=== PATIENT | male | born 1980 | race Native Hawaiian/Other Pacific Islander ===

== ENCOUNTER 2016-07-27 06:44 | Emergency (ER) | payer OTHER ==
[~2016-07-27] VITALS: Ht 167.6 cm; Wt 80.0 kg
[2016-07-27 06:52] VITALS: TEMP 37.3; Ht 167.6 cm; Wt 80.0 kg
[2016-07-27] MEDS ORDERED: ONDANSETRON INJ 2 MG/ML 2 ML VIAL IV STA (06:55)
[2016-07-27] MEDS ORDERED: SODIUM CHLORIDE 0.9% 1000ML 1,000 ML IV STA (06:55)
--- NOTE | 2016-07-27 06:58 | EMERGENCY ROOM VISIT NOTE ---
History Report prepared by Janelle: Jacquelin Cross Under the Supervision of: Dr. Zelalem Bonilla M.D. First contact with patient: 06:46 Chief Complaint: VOMITING Stated Complaint: VOMITING/DIARRHEA History of Present Illness The patient is a 36 year old male who presents to the Emergency Room with complaints of persistent nausea, vomiting, and diarrhea starting yesterday morning. He had 5 episodes of diarrhea and 4 episodes of vomiting. He reports a loss of appetite and a reduced fluid intake. He also complains of fatigue and diaphoresis. The patient denies any abdominal pain, or any other complaints. He denies any history of abdominal surgeries. He also denies any recent ill contacts or questionable food sources. Source of History: patient Onset: yesterday morning Position: other (global) Quality: other (nausea, vomiting, and diarrhea) Timing: other (persistent) Associated Symptoms: + diaphoresis, + fatigue, No abdominal pain Review of Systems See HPI for pertinent positives & negatives. A total of 10 systems reviewed and were otherwise negative. Past Medical & Surgical Medical Problems: (1) Asthma (2) Nausea vomiting and diarrhea Family History Heart disease Kidney disease Kidney stones Social History Marital Status: single Housing Status: lives with roommate Occupation Status: [employer] student Current/Historical Medications Scheduled Ondasetron Odt (Zofran Odt), 4 MG SL Q6H Allergies Coded Allergies: No Known Allergies (Unverified , 07/27/16) Physical Exam Vital Signs Date Time Temp Pulse Resp B/P Pulse Ox O2 Delivery O2 Flow Rate FiO2 07/27/16 08:38 103 07/27/16 08:17 98 18 112/74 96 Room Air 07/27/16 06:52 37.3 97 18 128/78 100 Room Air Physical Exam GENERAL: Patient is a healthy-appearing well-nourished HEAD: Normocephalic atraumatic EYES: Ocular movements intact pupils equal and react to light OROPHARYNX mucous membranes are moist no exudates present no erythema or edema present NECK: Supple no nuchal rigidity CHEST: Good equal expansion LUNGS: Clear and equal to auscultation CARDIAC: Normal S1 and S2 ABDOMEN: Soft nontender no guarding BACK: No CVA tenderness EXTREMITIES: No pain upon palpation normal muscle strength in all groups no clubbing cyanosis or edema NEURO: Patient is following commands is answering questions appropriately. Alert and oriented x3 Cranial Nerves 2-12 grossly intact Medical Decision & Procedures ER Provider Diagnostic Interpretation: X-ray results as stated below per interpretation by me and the radiologist: PA CHEST RADIOGRAPH AND UPRIGHT AND SUPINE AP RADIOGRAPHS OF THE ABDOMEN CLINICAL HISTORY: Nausea, vomiting and diarrhea. COMPARISON STUDY: No previous studies for comparison. FINDINGS: Lung volumes are normal. No consolidation is identified. There is no evidence of pulmonary edema. There is possible mild cardiomegaly. No free air is present. Bowel gas pattern is normal. Pelvic calcifications likely reflect phleboliths. IMPRESSION: 1. No free air or evidence of bowel obstruction. 2. No acute cardiopulmonary findings. 3. Possible mild cardiomegaly. Electronically signed by: Tyrone Zimmerman M.D. 07/27/2016 7:40 AM Dictated Date/Time: 07/27/2016 7:38 AM Laboratory Results 07/27/16 07:00 Red Blood Count 5.88, Mean Corpuscular Volume 75.7, Mean Corpuscular Hemoglobin 25.9, Mean Corpuscular Hemoglobin Concent 34.2, Mean Platelet Volume 10.5, Neutrophils (%) (Auto) 88.0, Lymphocytes (%) (Auto) 6.5, Monocytes (%) (Auto) 4.2, Eosinophils (%) (Auto) 0.5, Basophils (%) (Auto) 0.1, Neutrophils # (Auto) 8.84, Lymphocytes # (Auto) 0.65, Monocytes # (Auto) 0.42, Eosinophils # (Auto) 0.05, Basophils # (Auto) 0.01 07/27/16 07:00 Test 07/27/16 06:57 07/27/16 07:00 Urine Color DK YELLOW Urine Appearance CLOUDY (CLEAR) Urine pH 7.5 (4.5-7.5) Urine Specific [place] 1.039 (1.000-1.030) Urine Protein NEG (NEG) Urine Glucose (UA) NEG (NEG) Urine Ketones 1+ (NEG) Urine Occult Blood NEG (NEG) Urine Nitrite NEG (NEG) Urine Bilirubin NEG (NEG) Urine Urobilinogen NEG (NEG) Urine Leukocyte Esterase TRACE (NEG) Urine WBC (Auto) 1-5 /hpf (0-5) Urine RBC (Auto) 0-4 /hpf (0-4) Urine Hyaline Casts (Auto) 5-10 /lpf (0-5) Urine Epithelial Cells (Auto) >30 /lpf (0-5) Urine Bacteria (Auto) 1+ (NEG) Urine Renal Epithelial Cells /lpf (0-5) Urine Mucus PRESENT (NONE PRSENT) White Blood Count 10.04 K/uL (4.8-10.8) Red Blood Count 5.88 M/uL (4.7-6.1) Hemoglobin 15.2 g/dL (14.0-18.0) Hematocrit 44.5 % (42-52) Mean Corpuscular Volume 75.7 fL (80-100) Mean Corpuscular Hemoglobin 25.9 pg (25-34) Mean Corpuscular Hemoglobin Concent 34.2 g/dl (32-36) Platelet Count 304 K/uL (130-400) Mean Platelet Volume 10.5 fL (7.4-10.4) Neutrophils (%) (Auto) 88.0 % Lymphocytes (%) (Auto) 6.5 % Monocytes (%) (Auto) 4.2 % Eosinophils (%) (Auto) 0.5 % Basophils (%) (Auto) 0.1 % Neutrophils # (Auto) 8.84 K/uL (1.4-6.5) Lymphocytes # (Auto) 0.65 K/uL (1.2-3.4) Monocytes # (Auto) 0.42 K/uL (0.11-0.59) Eosinophils # (Auto) 0.05 K/uL (0-0.5) Basophils # (Auto) 0.01 K/uL (0-0.2) RDW Standard Deviation 38.4 fL (36.4-46.3) RDW Coefficient of Variation 13.8 % (11.5-14.5) Immature Granulocyte % (Auto) 0.7 % Immature Granulocyte # (Auto) 0.07 K/uL (0.00-0.02) Anion Gap 11.0 mmol/L (3-11) Est Creatinine Clear Calc Drug Dose 83.8 ml/min Estimated GFR () 89.0 Estimated GFR (Non- 76.8 BUN/Creatinine Ratio 20.5 (10-20) Calcium Level 9.9 mg/dl (8.5-10.1) Total Bilirubin 0.5 mg/dl (0.2-1) Direct Bilirubin 0.1 mg/dl (0-0.2) Aspartate Amino Transf (AST/SGOT) 27 U/L (15-37) Alanine Aminotransferase (ALT/SGPT) 50 U/L (12-78) Alkaline Phosphatase 116 U/L (45-117) Total Protein 9.2 gm/dl (6.4-8.2) Albumin 4.2 gm/dl (3.4-5.0) Lipase 125 U/L (73-393) Labs reviewed by ED physician. Medications Administered Medications (Trade) Dose Ordered Sig/Fernando Route Start Time Stop Time Status Last Admin Dose Admin Sodium Chloride (Nss 1000ml) 1,000 ml @ 999 mls/hr Q1H1M STAT IV 07/27/16 06:55 07/27/16 07:55 DC 07/27/16 07:08 999 MLS/HR Ondansetron HCl (Zofran Inj) 4 mg NOW STAT IV 07/27/16 06:55 07/27/16 06:58 DC 07/27/16 07:08 4 MG Ketorolac Tromethamine (Toradol Inj) 30 mg NOW STAT IV 07/27/16 07:37 07/27/16 07:38 DC 07/27/16 08:18 30 MG ED Course 0646: Past medical records reviewed. The patient was evaluated in room B06. A complete history and physical examination was performed. 0655: Zofran Inj 4 mg IV, Sodium Chloride 1000 ml @ 999 mls/hr IV 0737: Toradol Inj 30 mg IV 0806: Upon reexamination the patient is resting comfortably. I discussed results and treatment plan with the patient. He verbalizes agreement and understanding. The patient is ready for discharge. Medical Decision Differential diagnosis: Etiologies such as gastroenteritis, food borne illness, infections, appendicitis , diverticulitis, inflammatory bowel disease, obstruction, GI bleed, biliary pathology, as well as others were entertained. This is a 36-year-old male who presents emergency department complaining of vomiting. Serial abdominal examinations were performed on the patient in the emergency department and at no time did the patient exhibited a surgical abdomen. The patient was given normal saline bolus in the emergency department as well as Zofran. Repeat examination revealed improvement patient's symptoms. I do believe the patient as well as he can be discharged home for follow-up with his primary care physician. I recommended that the patient take Zofran and small sips of fluid. Patient was in agreement with the treatment plan. Impression Primary Impression: Gastroenteritis Scribe Attestation The scribe's documentation has been prepared under my direction and personally reviewed by me in its entirety. I confirm that the note above accurately reflects all work, treatment, procedures, and medical decision making performed by me. Departure Information Dispostion Home / Self-Care Prescriptions Ondasetron Odt (ZOFRAN ODT) 4 Mg Tab 4 MG SL Q6H for Nausea, #6 TAB Prov: Zelalem Bonilla MD 07/27/16 Referrals [facility] (PCP) Forms HOME CARE DOCUMENTATION FORM, IMPORTANT VISIT INFORMATION Patient Instructions ED Diet Vomiting Diarrhea, ED Gastroenteritis Vs Food Poison, My [facility] Additional Instructions You have been examined and treated today on an emergency basis only. This is not a substitute for, or an effort to provide, complete comprehensive medical care. It is impossible to recognize and treat all injuries or illnesses in a single emergency department visit. It is therefore important that you follow up closely with [facility]. Call as soon as possible for an appointment. Thank you for your time and consideration. I look forward to speaking with you again soon. Please don't hesitate to call us if you have any questions.
[2016-07-27 07:21] LABS: BASO % 0.1 %; BASO ABS # 0.01 K/uL (0-0.2); COMPLETE YES; EOS % 0.5 %; HEMATOCRIT 44.5 % (42-52); IG% 0.7 %; LYMPH % 6.5 %; LYMPH ABS # 0.65 K/uL (1.2-3.4); MEAN CELL VOLUME 75.7 fL (80-100); MEAN CORPUSCULAR HEMOGLOBIN 25.9 pg (25-34); MEAN CORPUSCULAR HGB CONC 34.2 g/dl (32-36); MEAN PLATELET VOLUME 10.5 fL (7.4-10.4); MONO % 4.2 %; PLATELET COUNT 304 K/uL (130-400); RED BLOOD COUNT 5.88 M/uL (4.7-6.1); WHITE BLOOD COUNT 10.04 K/uL (4.8-10.8)
[2016-07-27 07:27] LABS: URINE APPEARANCE CLOUDY (CLEAR); URINE COLOR DK YELLOW; URINE EPITHELIAL CELL AUTO >30 /lpf (0-5); URINE NITRITE NEG (NEG); URINE PH 7.5 (4.5-7.5); URINE SPECIFIC GRAVITY 1.039 (1.000-1.030); UROBILINOGEN NEG (NEG)
[2016-07-27 07:29] LABS: MANUAL MICROSCOPIC REQUIRED? NO; REVIEW REQ? YES; SULFASALICYLIC ACID NEG (NEG); URINE BILIRUBIN NEG (NEG)
[2016-07-27] MEDS ORDERED: KETOROLAC TROMETHAMINE 30 MG/ML VIAL IV STA (07:37)
[2016-07-27 07:38] LABS: URINE MUCUS PRESENT (NONE PRSENT)
[2016-07-27 07:39] LABS: BUN/CREATININE RATIO 20.5 (10-20); CALCIUM 9.9 mg/dl (8.5-10.1); CREATININE 1.2 mg/dl (0.60-1.40); POTASSIUM 4.1 mmol/L (3.5-5.1)
--- NOTE | 2016-07-27 07:41 | DIAGNOSTIC IMAGING REPORT ---
PA CHEST RADIOGRAPH AND UPRIGHT AND SUPINE AP RADIOGRAPHS OF THE ABDOMEN CLINICAL HISTORY: Nausea, vomiting and diarrhea. COMPARISON STUDY: No previous studies for comparison. FINDINGS: Lung volumes are normal. No consolidation is identified. There is no evidence of pulmonary edema. There is possible mild cardiomegaly. No free air is present. Bowel gas pattern is normal. Pelvic calcifications likely reflect phleboliths. IMPRESSION: 1. No free air or evidence of bowel obstruction. 2. No acute cardiopulmonary findings. 3. Possible mild cardiomegaly. Electronically signed by: Tyrone Zimmerman M.D. 07/27/2016 7:40 AM Dictated Date/Time: 07/27/2016 7:38 AM
[2016-07-27 08:17] VITALS: BP 112/74; O2SAT 96
[2016-07-27] MEDS ORDERED: ONDA4TAB10 SL (08:24)
[2016-07-27 08:38] VITALS: PULSE 103
== END 2016-07-27 08:38 | disposition home or self-care (01) ==
LOC: EDBD 06:44 → C.EDB 06:44
DX: K52.9 Noninfective gastroenteritis and colitis, unspecified (principal); J45.909 Unspecified asthma, uncomplicated